=== PATIENT | male | born 1960 ===

== ENCOUNTER 2018-04-25 08:30 | Day surgery (SDC) | payer BC ==
[2018-04-15 11:29] VITALS: BMI 29.1
[2018-04-25] MEDS ORDERED: Lidocaine 2% Jelly (30 ml) ONE (10:57)
[2018-04-25 11:23] VITALS: O2SAT 99
[2018-04-25 11:56] VITALS: BP 123/77; PULSE 54; RESP 16; TEMP 97.5
== END 2018-04-25 12:16 | disposition home or self-care (01) ==
LOC: ENDO 08:30
PROVIDERS: ATTEND Internal Medicine Gastroenterology
DX: K63.5 Polyp of colon (principal); K64.8 Other hemorrhoids